=== PATIENT | female | born 2000 | race Caucasian/White ===

== ENCOUNTER 2024-02-24 12:41 | Day surgery (SDC) | payer OTHER ==
[2024-02-24 13:16] VITALS: BMI 33.2
[2024-02-24] MEDS ORDERED: hydrALAZINE 20 MG/ML VIAL SLOW IVP PRN (13:54)
[2024-02-24 14:34] LABS: Fetal Membranes Rupture No Membranes Rupture (No Rupture)
== END 2024-02-24 15:31 | disposition home or self-care (01) ==
LOC: CSHLD/OP 12:41
PROVIDERS: ATTEND Obstetrics & Gynecology
DX: O24.92 Unspecified diabetes mellitus in childbirth (principal); Z3A.38 38 weeks gestation of pregnancy
CPT/HCPCS: 84112; 87480; 87510; 87660; 99284

== ENCOUNTER 2025-01-16 11:37 | Emergency (ER) | payer OTHER | END 2025-01-16 13:05 | disposition home or self-care (01) | LOC: CSHERS 11:37 | DX: N61.0 Mastitis without abscess (principal); F17.210 Nicotine dependence, cigarettes, uncomplicated | CPT/HCPCS: 99283 ==